=== PATIENT | male | born 1960 | race Caucasian/White ===

== ENCOUNTER 2024-03-14 08:14 | Day surgery (SDC) | payer BC, SELFPAY ==
[2024-02-25 13:00] VITALS: BMI 35.3
--- NOTE | 2024-02-25 13:14 | HPS.HSE ---
Family Physician
-
Family Physician: Kaila Boston
Chief Complaint
-
Paroxysmal atrial fibrillation.
History of Present Illness
The patient is a 64-year-old male presenting today for paroxysmal atrial fibrillation. The patient reports shortness of breath and decreased exercise tolerance associated with his arrhythmia. He previously underwent a YENNI-guided
cardioversion in July 2023 secondary to this diagnosis. Unfortunately, his atrial fibrillation quickly reoccurred soon after his procedure. He is on current pharmacological therapy with Diltiazem and Metoprolol Succinate. He reports he has been
compliant with Eliquis for oral anticoagulation due to a [id number] of 2. He notes that his current symptoms greatly interfere with his activities of daily living and overall impact his quality of life. He is interested in pursuing with pulmonary
vein isolation for further arrhythmia management. He denies any current complaints today such as chest pain and shortness of breath at rest, nausea, vomiting, diarrhea, lightheadedness, dizziness, cough, sore throat, or fever.
Medical History
Past Medical History
Past Medical History: Reports Other
Additional Past Medical History:
1. Paroxysmal atrial fibrillation, status post YENNI-guided cardioversion 07/2023; pharmacological therapy with Metoprolol Succinate and Diltiazem, oral anticoagulation with Eliquis.
2. Hypertension.
3. Hyperlipidemia.
4. Right bundle branch block.
5. 4.6 second conversion pauses noted on last event monitor, asymptomatic.
6. Asthma, mild and intermittent.
7. Obstructive sleep apnea, compliant with CPAP.
8. Right lower lobe pulmonary nodule on pre-operative chest CT.
9. Prediabetes.
10. History of hyponatremia, medication induced.
11. Obesity, BMI 35.3.
12. Remote history of tobacco abuse.
Past Surgical History: Reports Other
Additional Past Surgical History:
1. YENNI-guided cardioversion.
2. Cardiac catheterization.
3. Hydrocelectomy.
4. [place] teeth extraction.
5. Colonoscopy.
Social History
Tobacco: Former Smoker (He is a former 1/2 pack per day cigarette smoker who quit tobacco altogether approximately 30 years ago. )
Alcohol: Occasional (on weekends )
Personal:
Living: Other (He lives in a 2 story home with his . )
Family History
Family History: Not pertinent
Allergies / Home Medications
Allergy/Medication List:
Home medications:
1. Albuterol sulfate 2 puffs inhaled every 6 hours as needed.
2. Apixaban 5 mg p.o. twice a day.
3. Clonidine HCl 0.3 mg p.o. twice a day.
4. Diltiazem 240 mg p.o. twice a day.
5. Advair Diskus 1 inhalation twice a day.
6. Osteo Bi-Flex 2 tablets p.o. daily.
7. Hydralazine 25 mg p.o. three times a day.
8. Losartan 100 mg p.o. daily.
9. Metoprolol Succinate 100 mg p.o. at bedtime.
10. Multivitamin 1 tablet p.o. daily.
11. Brashear-3 2,000 mg p.o. daily.
12. CholestOff Complete 1 capsule p.o. daily.
13. Pravastatin 40 mg p.o. daily.
14. Saw palmetto 2 tablets p.o. daily.
Allergies: Peanuts. No known drug allergies.
Review of Systems
-
A 12 point ROS was completed and negative except as noted: Yes
Physical Exam
Vital Signs
Blood pressure 138/92. Heart rate 93. Respirations 18. Pulse ox 97% on room air.
Height 6 feet, 3 inches. Weight 128.2 kg. BMI 35.3.
Physical Exam
General: Well Developed, Well Nourished and No Apparent Distress
HEENT: NormoCephalic, Moist mucous membranes, Atraumatic and PERRLA
Respiratory: Clear
Cardiac: Irregular Rhythm
GI: Soft, Non Tender, Non Distended and Other (Obese. )
Musculoskeletal: No Edema and Normal Gait & Station
Skin: Warm and Dry
Neuro: AO x 3 and Nonfocal/grossly intact
Laboratory Results
-
DIAGNOSTIC STUDIES as of 02/25/2024: White blood cell count 10.4. Hemoglobin 14.3. Platelet count 225,000. PT 15.3. INR 1.15. Sodium 137. Potassium 4.3. BUN 18. Creatinine 1.2. Glucose 115. Calcium 9.6. Magnesium 2.0. AST 35. ALT 46. Albumin 4.5.
Type and screen O positive.
EKG 02/25/2024: Atrial fibrillation. Right bundle branch block.
Chest CT 02/25/2024: Short segment common vestibule for the left superior and inferior pulmonary veins, fairly commonly seen and considered normal variant. No evidence for left atrial thrombus. 2.2 cm right lower lobe groundglass nodule. Recommend
follow-up noncontrast CT chest in 6-12 months.
Impression/Plan
-
IMPRESSION/PLAN:
1. Paroxysmal atrial fibrillation: The patient is in need of pulmonary vein isolation with Dr. Arias Mercado on 03/14/2024. The benefits and risks of the procedure have been explained to the patient. The patient understands these risks and wishes to
proceed. He will not be required to undergo a pre-preprocedural transesophageal echocardiogram as he does report compliance with his home oral anticoagulation. He is aware to continue his Eliquis uninterrupted prior to his procedure. He will take no
medications the morning of his ablation.
2. Right lower lobe pulmonary nodule on chest CT: The patient was made aware of his chest CT results through phone call 02/26/2024. Results will be forwarded to his primary care physician, Dr. Kaila Boston, for further follow-up and management. It
is recommended he get a noncontrast chest CT in 6-12 months.
[2024-02-25 13:38] LABS: % Basophils 0.6 % (0-2); % Eosinophils 2.3 % (0-6); % Immature Granulocytes 0.8 % (0-0.5); % Lymphocytes 23.7 % (20.5-51.1); % Monocytes 6.7 % (1.7-9.3); % Neutrophils 65.9 % (42.2-75.2); Absolute Basophils 0.1 10^3/uL (0-0.2); Absolute Eosinophils 0.2 10^3/uL (0-0.7); Absolute Immature Granulocytes 0.1 10^3/uL (0-0.05); Absolute Lymphocytes 2.5 10^3/uL (1.2-3.4); Absolute Monocytes 0.7 10^3/uL (0.1-0.6); Absolute Neutrophils 6.9 10^3/uL (1.4-6.5); Hematocrit 42.6 % (39.0-52.0); Hemoglobin 14.3 g/dL (13.0-18.0); Mean Corp Hgb Conc. 33.6 g/dL (33.0-37.0); Mean Corpuscular Hgb 31.2 pg (27.0-31.0); Mean Corpuscular Volume 92.8 fL (80.0-94.0); Mean Platelet Volume 9.8 fL (7.4-10.4); Nucleated Red Blood Cells % 0 % (-); Platelet Count 225 10^3/uL (130-400); Red Blood Cell Count 4.59 10^6/uL (4.70-6.10); Red Cell Dist. Width 12.2 % (11.5-14.5); White Blood Cell Count 10.4 10^3/uL (4.8-10.8)
[2024-02-25 13:48] LABS: INR 1.15; PT 15.3 Sec (11.4-14.6)
[2024-02-25 13:56] LABS: ALT (SGPT) 46 U/L (0-50); AST (SGOT) 35 U/L (17-59); Albumin 4.5 g/dl (3.5-5.0); Alkaline Phosphatase 74 U/L (38-126); Blood Urea Nitrogen 18 mg/dl (9-20); Calcium 9.6 mg/dl (8.4-10.2); Carbon Dioxide 29 mmol/L (22-30); Chloride 98 mmol/L (98-107); Estimated Creatinine Clearance 87 ml/min; Glucose 115 mg/dl (70-99); Potassium 4.3 mmol/L (3.5-5.1); Sodium 137 mmol/L (135-145); Total Bilirubin 0.6 mg/dl (0.2-1.3); Total Protein 7.5 g/dl (6.3-8.2); eGFR > 60.00
--- NOTE | 2024-03-10 09:51 | OID.L.PAT ---
Pulmonary Nodule Pat Letter
- -
03/10/24
MINA PHAN
[address] [facility]
[place], [place]
Dear MINA,
A pulmonary nodule was seen on an imaging study done by [facility]. This was reviewed by the [facility] Pulmonary Nodule Advisory Board and the following recommendation was made:
Recommendation: Follow up with a Business Analyst Consultant
If you have any questions, please do not hesitate to contact your primary care physician. If you are in need of a Physician, you can go to [email or web address] and click on 'Find a Provider'. Type 'Family Medicine' in the search.
Oncology Nurse Navigator
[facility]
[phone]
--- NOTE | 2024-03-10 09:51 | OID.L.REC ---
Pulmonary Nodule Follow Up
- Recommendation
03/10/24
Pulmonary Nodule Review Recommendations
Your patient, MINA PHAN, had a pulmonary nodule seen on an imaging study done on 02/25/24 in the [facility] Radiology Department.
This was reviewed by the [facility] Pulmonary Nodule Advisory Board and the following recommendation was made:
Recommendation: Follow up with a Seismic Observer
If you have any questions please do not hesitate to contact us.
Sincerely,
Oncology Nurse Navigator
[facility]
[phone]
[2024-03-14] VITALS (14 sets, daily range): BP systolic 112–126; BP diastolic 70–78
[2024-03-14] MEDS: TYLENOL 1000 MG PO (09:37)
--- NOTE | 2024-03-14 10:55 | ITS.CL.ABL ---
[facility] In - Ablation
Ablation
Procedure Report:
Primary Firm Administrator: Marques Rodgers MD
Procedure Date: 03/14/2024
Patient History:
Patient is a pleasant 64-year-old male with a past medical history significant for hypertension, sleep apnea, dyslipidemia, right bundle branch block, asthma, symptomatic paroxysmal now persistent atrial fibrillation with symptomatic conversion
pauses.
See H&P for complete details.
Indication:
Symptomatic persistent atrial fibrillation
Early recurrence following cardioversion
Arrhythmia Specific History:
Prior Medical Therapies for Rate and Rhythm Control:
X Beta-pro
X Calcium channel-pro
[ ] Amiodarone
[ ] Dronederone
[ ] Sotalol
[ ] Flecainide
[ ] Dofetilide
X Options limited by bradycardia
[ ] Options limited by comorbid renal disease
Prior Procedural Therapies for AF/AFL:
X Cardioversion
[ ] Pulmonary Vein Isolation
[ ] Posterior Wall Isolation
[ ] Additional lines (Specify)
[ ] Surgical Arana-MAZE or PVI (Specify)
Procedure Performed:
X AF ablation procedure (95699) -- includes LA/CS pacing, trans-septal, 3D mapping, + ICE
[ ] +IV drug (77496)
[ ] +Other Arrhythmia (57863)
X +Other AF Line/ablation (30531) - posterior wall isolation (roof, floor, wall)
Risks and expected recovery has been explained in detail. Alternative options have been explored, and in a shared-decision making fashion we have decided that this was the most appropriate procedure.
Method
NPO status confirmed. Grounding pad applied. Defibrillator pads applied. Continuous surface ECG, pulse oximetry, and blood pressure were monitored. Procedure was performed under general anesthesia, with anesthesia services.
Both groins were clipped, prepped with Chloraprep, and draped in sterile fashion. Time out was called. Local anesthesia administered with bupivacaine. The right femoral vein was accessed for catheter placement, using ultrasound guidance (images
saved to record), micro-puncture needle/wire, and modified seldinger technique. 3 sheaths were placed. The following catheters were used:
[ ] Tacticath SE (D/F Curve) ablation catheter
X Viewflex 9Fr ICE catheter
X Inquiry decapolar 6Fr diagnostic catheter
[ ] CRD Hex 6Fr
[ ] Arctic Front Advance Cryoballoon ([ ]28mm[ ]23mm)
[ ] Achieve Advance mapping catheter ([ ]15mm[ ]20mm)
X FlexCath Contour 10 Fr with PulseSelect PFA Catheter
X Advisor HD Grid Mapping Catheter, SE
[ ] AcusArynga AcuNav 8 Fr ICE catheter
[ ]Other: [ ]
Intracardiac ultrasound (ICE) was carefully advanced into the right atrium to guide sheath placement over a J-wire, catheter placement, guide trans-septal puncture, identify potential complications, identify anatomic structures and ensure proper
contact between ablation catheter and tissue. A trace basal circumferential pericardial effusion was noted at baseline which remained unchanged throughout the case and at case completion.
Heparin was given prior to trans-septal puncture. Heparin was given to achieve and maintain a target ACT of 300-400 seconds throughout the procedure.
Trans-septal access was performed under ICE guidance. The trans-septal puncture was performed with a SafeSept wire through a Brockenbrough needle assembly through the steerable sheath. The wire was visualized as it entered the LSPV and system
advanced under ICE guidance and fluoroscopy into the LA. The Brockenbrough needle assembly, SafeSept wire and sheath dilator were removed under negative pressure. LA pressure was measured and recorded.
ICE and 3D mapping was performed to identify relevant cardiac structures. A careful 3D map was created to assess for regions of low-voltage and abnormal electrogram signals using HD grid mapping catheter and PulseSelect catheter. Additional mapping
was performed as outlined below.
Prior to ablation, glycopyrrolate was provided. PulseSelect catheter was advanced over J-wire to the ostium of each vein. Pulmonary vein isolation was performed with ostial and antral lesions in a circumferential manner. Contact was visualized via
EAM, ICE, fluoroscopy, and EGM signals. Posterior wall isolation was performed by anchoring the J-wire within the pulmonary vein and placing the PulseSelect catheter in contact with the posterior wall as visualized by aforementioned methods.
Following completion of ablation lesions, sinus rhythm was restored with a 360J synchronized DCCV (failed 200J) and a post-ablation voltage/activation map was performed in atrial pacing. Reconnection was noted on the posterior wall and in the right
superior pulmonary vein during electroanatomic mapping. Repeat ablation was performed PCI right superior pulmonary vein and along the posterior wall/roof. Electroanatomic mapping was once more performed and entrance and exit block were confirmed
for each vein and the posterior wall.
Catheter and sheath were removed from the left atrium and post-ablation intracardiac echo evaluation was consistent with pre-ablation with no changes and no change to trace pericardial effusion and there is no left atrial thrombus or left ventricle
thrombus seen. Electrophysiology study was performed. During atrial extrastimuli, PAF was induced. 360 J synchronized cardioversion was performed with quaker of sinus rhythm. Hemostasis was obtained with figure of 8 stitch for each groin and
with manual pressure. Protamine was used for reversal.
Estimated Blood Loss
5 mL
Complications
None
Fluoroscopy: 6.8 minutes; 76.82 mGy; DAP 8.13
Baseline Intervals:
Rhythm: AF
QRS: 177 ms
Post-Procedure Intervals:
MT: 266 ms
QRS: 176 ms
QT: 489 ms
QTc: 543 ms
AVWB: 430 ms
AVNERP: 600/310 ms
Recommendations
- Bedrest with straight-leg precautions as ordered
- Anticipate same day discharge if patient meeting clinical metrics
- Resume home medications as indicated; decrease diltiazem to 240 mg daily
- Ok to resume anticoagulation tonight if patient and groin sites stable
- PPI daily for 30 days
- Plan for follow-up in office as scheduled
Arias Mercado, DO
Clinical Cardiac Application Support Consultant
cc: Marques Rodgers MD; Kaila Boston, DO
[2024-03-14 11:28] LABS: ACT-LR - POC 276 Seconds (116-155)
[2024-03-14 11:45] LABS: ACT-LR - POC 282 Seconds (116-155)
[2024-03-14 12:16] LABS: ACT-LR - POC 318 Seconds (116-155)
[2024-03-14 12:43] LABS: ACT-LR - POC 369 Seconds (116-155)
[2024-03-14 13:04] LABS: ACT-LR - POC 182 Seconds (116-155)
[2024-03-14 13:30] LABS: ACT-LR - POC > 397 Seconds (116-155)
--- NOTE | 2024-03-14 13:37 | PTCARENOTE ---
Dr Jaimes at pt bedside speaking to pt about procedure results.
--- NOTE | 2024-03-14 13:40 | PTCARENOTE ---
Pt noted to have a round dime sized red lump on left lateral abdomen. Pt also noted to have pea sized red lump on left anterior chest x2 and right anterior leg. Pt denies itching or pain at any site. No skin breakdown noted. Dr Jaimes and Clementina Lance
DIRECTOR PROCESS both made aware. No treatment ordered at this time.
--- NOTE | 2024-03-14 15:15 | PTCARENOTE ---
Dr Jaimes at pt bedside speaking to pt and pt's family.
--- NOTE | 2024-03-14 17:07 | W.PN.UPDATE ---
Update Note
Progress Note Update
64 yo WM s/p PVI (same day). He denies cp, sob, dipak diet, EKG SR 1deg AVB RBBB, R groin c/d/i no HT. He will resume Eliquis tonight. We will decrease his diltiazem to daily, and continue metoprolol. Activity restrictions reviewed. He will f/u
Vishal in 3 mo. He is for d/c home after 6pm if groin stable and voiding.
== END 2024-03-14 17:55 | disposition home or self-care (01) ==
LOC: CATH 08:14
PROVIDERS: ATTENDING PHYSICIAN Internal Medicine Cardiovascular Disease; FAMILY PHYSICIAN Family Medicine
DX: I48.19 Other persistent atrial fibrillation (principal); R06.02 Shortness of breath; Z79.899 Other long term (current) drug therapy; I10 Essential (primary) hypertension; E78.5 Hyperlipidemia, unspecified; I45.10 Unspecified right bundle-branch block; J45.909 Unspecified asthma, uncomplicated; G47.33 Obstructive sleep apnea (adult) (pediatric); R91.1 Solitary pulmonary nodule; R73.03 Prediabetes; E87.1 Hypo-osmolality and hyponatremia; E66.9 Obesity, unspecified; Z68.35 Body mass index [BMI] 35.0-35.9, adult; Z87.891 Personal history of nicotine dependence; Z79.51 Long term (current) use of inhaled steroids; Z79.01 Long term (current) use of anticoagulants
CPT/HCPCS: C1733; C1732; C1894 ×2; C1730; C1769; 36415; 75572; 80053; 83735; 85025; 85347; 85610; 86850; 86900; 86901; 93005; 93656; 93657; C1766; Q9967

== ENCOUNTER 2024-10-30 07:07 | Day surgery (SDC) | payer BC, MEDICARE, SELFPAY ==
--- NOTE | 2024-10-13 12:11 | HPS.HSE ---
Family Physician
-
Family Physician: NOT KNOW UNKNOWN - PT DOES
Chief Complaint
-
Persistent atrial fibrillation.
History of Present Illness
The patient is a 64-year-old male presenting today for persistent atrial fibrillation. The patient reports shortness of breath and decreased exercise tolerance associated with his arrhythmia. He previously underwent a YENNI-guided
cardioversion in July 2023 and pulmonary vein isolation in February 2024 secondary to this diagnosis. Unfortunately, his atrial fibrillation was noted to return during his routine cardiac evaluation with his primary upsetter setter up in June 2024. He is on
current pharmacological therapy with Diltiazem and Metoprolol Succinate. He reports that he has been compliant with Eliquis for oral anticoagulation due to a [id number] of 2. He notes that his current symptoms associated with his arrhythmia
overall impact his quality of life. He is interested in pursuing with pulmonary vein isolation again for more definitive arrhythmia management. Prior to undergoing his ablation, however, he will proceed first with a transesophageal echocardiogram to
rule out a left atrial appendage thrombus. He denies any current complaints today such as chest pain and shortness of breath at rest, nausea, vomiting, diarrhea, lightheadedness, dizziness, cough, sore throat, or fever.
Medical History
Past Medical History
Past Medical History: Reports Other
Additional Past Medical History:
1. Persistent atrial fibrillation, status post YENNI-guided cardioversion, 07/2023, and pulmonary vein isolation 02/2024; pharmacological therapy with Metoprolol Succinate and Diltiazem, oral anticoagulation with Eliquis.
2. Hypertension.
3. Hyperlipidemia.
4. Right bundle branch block.
5. 4.6 second conversion pauses on previous event monitor.
6. Mild-moderate valvular disease.
7. Asthma, mild and intermittent.
8. Obstructive sleep apnea, compliant with CPAP.
9. Right lower lobe pulmonary nodule.
10. Prediabetes.
11. History of hyponatremia and hypokalemia, medication induced.
12. Obesity, BMI 35.6.
13. Remote history of tobacco abuse.
Past Surgical History: Reports Other
Additional Past Surgical History:
1. Pulmonary vein isolation.
2. YENNI-guided cardioversion.
3. Cardiac catheterization.
4. Hydrocelectomy.
5. [place] teeth extraction.
6. Colonoscopy.
Social History
Tobacco: Former Smoker (He is a former 1/2 pack per day cigarette smoker who quit tobacco altogether approximately 30 years ago. )
Alcohol: Occasional (on weekends)
Personal:
Living: Other ((He lives in a 2 story home with his .)
Family History
Family History: Not pertinent
Allergies / Home Medications
Allergy/Medication List:
Home medications:
1. Albuterol sulfate 2 puffs inhaled every 6 hours as needed.
2. Apixaban 5 mg p.o. twice a day.
3. Clonidine HCl 0.3 mg p.o. twice a day.
4. Diltiazem 240 mg p.o. daily.
5. Advair Diskus 1 inhalation twice a day.
6. Osteo Bi-Flex 2 tablets p.o. daily.
7. Hydralazine 25 mg p.o. three times a day.
8. Losartan 100 mg p.o. daily.
9. Metoprolol Succinate 100 mg p.o. at bedtime.
10. Multivitamin 1 tablet p.o. daily.
11. Bacliff-3 2,400 mg p.o. daily.
12. CholestOff Complete 2 capsule p.o. daily.
13. Pravastatin 40 mg p.o. daily.
14. Saw palmetto 2 tablets p.o. daily.
Allergies: Amlodipine. Chlorthalidone. Lisinopril. Peanuts.
Review of Systems
-
A 12 point ROS was completed and negative except as noted: Yes
Physical Exam
Vital Signs
Blood pressure 139/91. Heart rate 70. Respirations 18. Pulse ox 97% on room air.
Height 6 feet, 2.5 inches. Weight 127.6 kg. BMI 35.6.
Physical Exam
General: Well Developed, Well Nourished and No Apparent Distress
HEENT: NormoCephalic, Moist mucous membranes, Atraumatic and PERRLA
Respiratory: Clear
Cardiac: Irregular Rhythm
GI: Soft, Non Tender, Non Distended and Other (Obese. )
Musculoskeletal: No Edema and Normal Gait & Station
Skin: Warm and Dry
Neuro: AO x 3 and Nonfocal/grossly intact
Laboratory Results
-
DIAGNOSTIC STUDIES as of 10/13/2024: White blood cell count 9.2. Hemoglobin 15.2. Platelet count 226,000. PT 14.8. INR 1.13. Sodium 137. Potassium 4.2. BUN 18. Creatinine 0.9. Glucose 116. Calcium 9.8. Magnesium 1.8. AST 38. ALT 45. Albumin 4.7.
Type and screen O positive.
EKG 10/13/2024: Atrial fibrillation. Right bundle branch block.
Echocardiogram 05/17/2023: The ejection fraction is 60-65%. Mild concentric left ventricular hypertrophy. Left atrium is markedly dilated. Right ventricle is mildly enlarged. Right atrium is severely enlarged. Mild-moderate aortic stenosis with some
restriction of motion. Anterior leaflet is mildly thickened and sclerotic. Moderate posterior mitral annular calcification. Physiologic mitral regurgitation present. Trivial tricuspid regurgitation.
Impression/Plan
-
IMPRESSION/PLAN:
1. Persistent atrial fibrillation: The patient is in need of pulmonary vein isolation for further arrhythmia management; however, prior to undergoing this procedure, he will first undergo a tranesophageal echocardiogram to definitively rule out a
left atrial appendage thrombus. This has been scheduled for 10/30/[address] Shadia Peng. The benefits and risks of the procedure have been explained to the patient. The patient understands these risks and wishes to proceed. He is aware to
continue his Eliquis uninterrupted prior to his procedure.
[2024-10-30 07:52] VITALS: BMI 35.5
== END 2024-10-30 09:10 | disposition home or self-care (01) ==
LOC: CATH 07:07
PROVIDERS: ATTENDING PHYSICIAN Internal Medicine Cardiovascular Disease; FAMILY PHYSICIAN Family Medicine; OTHER PHYSICIAN Internal Medicine Cardiovascular Disease
DX: I08.3 Combined rheumatic disorders of mitral, aortic and tricuspid valves (principal); I77.810 Thoracic aortic ectasia; I70.0 Atherosclerosis of aorta; I08.8 Other rheumatic multiple valve diseases; I48.19 Other persistent atrial fibrillation; I10 Essential (primary) hypertension; E78.5 Hyperlipidemia, unspecified; E66.9 Obesity, unspecified; G47.33 Obstructive sleep apnea (adult) (pediatric); J45.909 Unspecified asthma, uncomplicated; Z68.35 Body mass index [BMI] 35.0-35.9, adult; Z87.891 Personal history of nicotine dependence; R73.03 Prediabetes; Z79.899 Other long term (current) drug therapy; Z79.51 Long term (current) use of inhaled steroids; Z79.01 Long term (current) use of anticoagulants; Z91.010 Allergy to peanuts; Z88.8 Allergy status to other drugs, medicaments and biological substances
CPT/HCPCS: 93312; 93320; 93325

== ENCOUNTER 2024-10-31 05:54 | Day surgery (SDC) | payer BC, MEDICARE, SELFPAY ==
[2024-10-13 10:44] VITALS: BMI 35.6
--- NOTE | 2024-10-13 10:54 | HPS.HSE ---
Family Physician
-
Family Physician: Kaila Boston
Chief Complaint
-
Persistent atrial fibrillation.
History of Present Illness
The patient is a 64-year-old male presenting today for persistent atrial fibrillation. The patient reports shortness of breath and decreased exercise tolerance associated with his arrhythmia. He previously underwent a YENNI-guided
cardioversion in July 2023 and pulmonary vein isolation in February 2024 secondary to this diagnosis. Unfortunately, his atrial fibrillation was noted to return during his routine cardiac evaluation with his primary broach trouble shooter in June 2024. He is on
current pharmacological therapy with Diltiazem and Metoprolol Succinate. He reports that he has been compliant with Eliquis for oral anticoagulation due to a [id number] of 2. He notes that his current symptoms associated with his arrhythmia
overall impact his quality of life. He is interested in pursuing with pulmonary vein isolation again for more definitive arrhythmia management. He denies any current complaints today such as chest pain and shortness of breath at rest, nausea,
vomiting, diarrhea, lightheadedness, dizziness, cough, sore throat, or fever.
Medical History
Past Medical History
Past Medical History: Reports Other
Additional Past Medical History:
1. Persistent atrial fibrillation, status post YENNI-guided cardioversion, 07/2023, and pulmonary vein isolation 02/2024; pharmacological therapy with Metoprolol Succinate and Diltiazem, oral anticoagulation with Eliquis.
2. Hypertension.
3. Hyperlipidemia.
4. Right bundle branch block.
5. 4.6 second conversion pauses on previous event monitor.
6. Mild-moderate valvular disease.
7. Asthma, mild and intermittent.
8. Obstructive sleep apnea, compliant with CPAP.
9. Right lower lobe pulmonary nodule.
10. Prediabetes.
11. History of hyponatremia and hypokalemia, medication induced.
12. Obesity, BMI 35.6.
13. Remote history of tobacco abuse.
Past Surgical History: Reports Other
Additional Past Surgical History:
1. Pulmonary vein isolation.
2. YENNI-guided cardioversion.
3. Cardiac catheterization.
4. Hydrocelectomy.
5. [place] teeth extraction.
6. Colonoscopy.
Social History
Tobacco: Former Smoker (He is a former 1/2 pack per day cigarette smoker who quit tobacco altogether approximately 30 years ago. )
Alcohol: Occasional (on weekends.)
Personal:
Living: Other (He lives in a 2 story home with his .)
Family History
Family History: Not pertinent
Allergies / Home Medications
Allergy/Medication List:
Home medications:
1. Albuterol sulfate 2 puffs inhaled every 6 hours as needed.
2. Apixaban 5 mg p.o. twice a day.
3. Clonidine HCl 0.3 mg p.o. twice a day.
4. Diltiazem 240 mg p.o. daily.
5. Advair Diskus 1 inhalation twice a day.
6. Osteo Bi-Flex 2 tablets p.o. daily.
7. Hydralazine 25 mg p.o. three times a day.
8. Losartan 100 mg p.o. daily.
9. Metoprolol Succinate 100 mg p.o. at bedtime.
10. Multivitamin 1 tablet p.o. daily.
11. Hoxie-3 2,400 mg p.o. daily.
12. CholestOff Complete 2 capsule p.o. daily.
13. Pravastatin 40 mg p.o. daily.
14. Saw palmetto 2 tablets p.o. daily.
Allergies: Amlodipine. Chlorthalidone. Lisinopril. Peanuts.
Review of Systems
-
A 12 point ROS was completed and negative except as noted: Yes
Physical Exam
Vital Signs
Blood pressure 139/91. Heart rate 70. Respirations 18. Pulse ox 97% on room air.
Height 6 feet, 2.5 inches. Weight 127.6 kg. BMI 35.6.
Physical Exam
General: Well Developed, Well Nourished and No Apparent Distress
HEENT: NormoCephalic, Moist mucous membranes, Atraumatic and PERRLA
Respiratory: Clear
Cardiac: Irregular Rhythm
GI: Soft, Non Tender, Non Distended and Other (Obese. )
Musculoskeletal: No Edema and Normal Gait & Station
Skin: Warm and Dry
Neuro: AO x 3 and Nonfocal/grossly intact
Laboratory Results
-
DIAGNOSTIC STUDIES as of 10/13/2024: White blood cell count 9.2. Hemoglobin 15.2. Platelet count 226,000. PT 14.8. INR 1.13. Sodium 137. Potassium 4.2. BUN 18. Creatinine 0.9. Glucose 116. Calcium 9.8. Magnesium 1.8. AST 38. ALT 45. Albumin 4.7.
Type and screen O positive.
EKG 10/13/2024: Atrial fibrillation. Right bundle branch block.
Echocardiogram 05/17/2023: The ejection fraction is 60-65%. Mild concentric left ventricular hypertrophy. Left atrium is markedly dilated. Right ventricle is mildly enlarged. Right atrium is severely enlarged. Mild-moderate aortic stenosis with some
restriction of motion. Anterior leaflet is mildly thickened and sclerotic. Moderate posterior mitral annular calcification. Physiologic mitral regurgitation present. Trivial tricuspid regurgitation.
Impression/Plan
-
IMPRESSION/PLAN:
1. Persistent atrial fibrillation: The patient is in need of pulmonary vein isolation with Dr. Arias Mercado on 10/31/2024. The benefits and risks of the procedure have been explained to the patient. The patient understands these risks and wishes to
proceed. Prior to undergoing his ablation, he will proceed first with a transesophageal echocardiogram on 10/30/2024 to definitively rule out a left atrial appendage thrombus. He is aware to continue his Eliquis uninterrupted prior to his procedure.
He will take no medications the morning of his ablation.
[2024-10-13 11:22] LABS: Hematocrit 44.5 % (39.0-52.0); Hemoglobin 15.2 g/dL (13.0-18.0); Mean Corp Hgb Conc. 34.2 g/dL (33.0-37.0); Mean Corpuscular Volume 91.8 fL (80.0-94.0); Nucleated Red Blood Cells % 0 % (-); Platelet Count 226 10^3/uL (130-400); Red Cell Dist. Width 12.3 % (11.5-14.5)
[2024-10-13 11:33] LABS: INR 1.13; PT 14.8 Sec (11.4-14.6)
[2024-10-13 11:53] LABS: ALT (SGPT) 45 U/L (0-50); AST (SGOT) 38 U/L (17-59); Albumin 4.7 g/dl (3.5-5.0); Alkaline Phosphatase 70 U/L (38-126); Blood Urea Nitrogen 18 mg/dl (9-20); Calcium 9.8 mg/dl (8.4-10.2); Carbon Dioxide 26 mmol/L (22-30); Chloride 102 mmol/L (98-107); Estimated Creatinine Clearance 115 ml/min; Glucose 116 mg/dl (70-99); Magnesium 1.8 mg/dl (1.6-2.3); Potassium 4.2 mmol/L (3.5-5.1); Sodium 137 mmol/L (135-145); Total Protein 7.8 g/dl (6.3-8.2); eGFR > 60.00
[2024-10-31] VITALS (13 sets, daily range): BP systolic 125–167; BP diastolic 78–110; BMI 35.6
[2024-10-31] MEDS: NSS 500 IV (06:49)
[2024-10-31] MEDS: TYLENOL 1000 MG PO (07:15)
--- NOTE | 2024-10-31 07:28 | ITS.CL.ABL ---
Shoe Maker - Ablation
Ablation
Procedure Report:
Primary Tax Analyst: Dr Marques Rodgers
Procedure Date: 10/31/2024
Patient History:
Patient's pleasant 64-year-old male with a past medical history significant for hypertension, sleep apnea, obesity, hyperlipidemia, and symptomatic persistent atrial fibrillation.
See H&P for complete details.
Indication:
Symptomatic persistent atrial fibrillation
Recurrence of atrial fibrillation following prior cardiac ablation
Arrhythmia Specific History:
Prior Medical Therapies for Rate and Rhythm Control:
X Beta-pro
X Calcium channel-pro
[ ] Amiodarone
[ ] Dronederone
[ ] Sotalol
[ ] Flecainide
[ ] Dofetilide
[ ] Options limited by bradycardia
[ ] Options limited by comorbid renal disease
Prior Procedural Therapies for AF/AFL:
X Cardioversion
X Pulmonary Vein Isolation 02/2024
X Posterior Wall Isolation 02/2024
X Additional lines (Specify) -floor line, roofline 02/2024
[ ] Surgical Arana-MAZE or PVI (Specify)
Procedure Performed:
X AF ablation procedure (04473) -- includes LA/CS pacing, trans-septal, 3D mapping, + ICE
[ ] +IV drug (39876)
X +Other Arrhythmia (63449) - Typical atrial flutter ablation
X +Other AF Line/ablation (62230) - floor line, roof line, posterior wall isolation
Risks and expected recovery has been explained in detail. Alternative options have been explored, and in a shared-decision making fashion we have decided that this was the most appropriate procedure.
Method
NPO status confirmed. Grounding pad applied. Defibrillator pads applied. Continuous surface ECG, pulse oximetry, and blood pressure were monitored. Procedure was performed under general anesthesia, with anesthesia services.
Both groins were clipped, prepped with Chloraprep, and draped in sterile fashion. Time out was called. Local anesthesia administered with bupivacaine. The right femoral vein was accessed for catheter placement, using ultrasound guidance (images
saved to record), micro-puncture needle/wire, and modified seldinger technique. 3 sheaths were placed. The following catheters were used:
[ ] Tacticath SE (D/F Curve) ablation catheter
X Viewflex 9Fr ICE catheter
X Inquiry decapolar 6Fr diagnostic catheter
[ ] CRD Hex 6Fr
X Agilis 11.5 Fr Steerable Sheath
X Sphere-9 Ablation catheter
[ ] Advisor HD Grid Mapping Catheter, SE
[ ] Acuson AcuNav 8 Fr ICE catheter
[ ] Other: [ ]
A multipolar catheter were advanced to the coronary sinus. Intracardiac ultrasound (ICE) was carefully advanced into the right atrium to guide sheath placement over a J-wire, catheter placement, guide trans-septal puncture, identify potential
complications, identify anatomic structures and ensure proper contact between ablation catheter and tissue. A trace basal pericardial effusion was noted at the initiation of procedure. This remained unchanged throughout procedure and the case
completion.
Heparin was given to achieve and maintain a target ACT of 300-400 seconds throughout the procedure.
Trans-septal access was performed under ICE guidance. The trans-septal puncture was performed with a SafeSept wire through a Brockenbrough needle assembly through the steerable sheath. The wire was visualized as it entered the LSPV and system
advanced under ICE guidance and fluoroscopy into the LA. The Brockenbrough needle assembly, SafeSept wire and sheath dilator were removed under negative pressure. LA pressure was measured and recorded.
ICE and 3D mapping was performed to identify relevant cardiac structures. A careful 3D map was created to assess for regions of low-voltage and abnormal electrogram signals using Sphere-9 catheter. Additional mapping was performed as outlined below.
Prior to ablation, glycopyrrolate was provided. Sphere 9 catheter was advanced into the left atrium. Electroanatomic mapping was performed using the Sphere 9 catheter. Reconnection was noted at the right superior pulmonary vein. While the left
superior, left inferior, and right inferior pulmonary veins demonstrated exit block, complex fractionated signal ingrowth was noted at the ostia of the veins. Therefore, pulmonary vein isolation was performed using pulsed field ablation in a
circumferential manner. Contact was visualized via EAM, ICE, fluoroscopy, and EGM signals.
After accomplishing pulmonary venous isolation, mapping identified additional areas likely to be extra PV contributors to atrial fibrillation. The floor line, roofline, and posterior wall had previously been isolated however patchy electrograms
were noted which could play a role in patient's atrial fibrillation initiation and sustained arrhythmias. These areas demonstrated patchy low voltage as well as complex fractionated electrograms. These areas can be sites for the formation of rotors
which can drive and maintain atrial fibrillation. These areas are known to be significant contributors to initiation and perpetuation of atrial fibrillation.
Additional energy applications/additional ablation sets targeted extra PV contributors to atrial fibrillation.
Targets for additional PFA ablation included: LA posterior wall targeted with pulsed electric field energy isolating the posterior wall of the left atrium. Posterior wall isolation was performed by aforementioned methods using Sphere-9 catheter.
After ablation of the posterior wall, targets remained including:
- Inferior LA floor
- Anterior LA roof
- The ridge of tissue between the left atrial appendage and the left sided pulmonary veins (Ligament of Arnaldo)
These areas were ablated using pulsed electric field energy eliminating the extra PV contributors to atrial fibrillation.
Following completion of ablation lesions, sinus rhythm was restored with a 360J synchronized DCCV (unsuccessful 200J synchronized DCCV) and a post-ablation voltage/activation map was performed in sinus rhythm. Entrance and exit block were confirmed
for each vein and the posterior wall.
Next, electrophysiology study was performed. Atrial flutter was induced with a concentric pattern on coronary sinus catheter. Pacing from proximal coronary sinus demonstrated circuit likely originating from the right atrium while pacing from the
distal coronary sinus demonstrated manifest entrainment with a late PPI minus TCL. The sphere�9 catheter was removed from the left atrium and LA pressures were recorded. Sheath was removed from the left atrium and the catheter was reintroduced
into the right atrium. Three-dimensional electroanatomic mapping was utilized with careful attention to anatomic landmarks, including the coronary sinus, IVC-RA and SVC-RA junction, tricuspid valve annulus, and region of the His bundle electrogram.
Tachycardia was characterized by activation patterns in the CS catheters. Entrainment maneuvers established cavotricuspid isthmus-dependence. Tachycardia at terminated with bump to CTI. Baseline bidirectional transisthmus time was recorded. An
ablation line was created from the tricuspid annulus to the IVC in the 6:00 position (ROLAND clock/caudal EAM projection). A combination of RF and PF was used with careful monitoring of impedance, AV conduction, power, and temperature. Ablation
continued until a line was complete from the tricuspid valve annulus to the IVC-RA junction during CS pacing. Clockwise and counterclockwise trans-isthmus times were determined, and RA activation patterns confirmed bidirectional block.
Following the waiting period, electrophysiology study was once more performed and patient was noninducible for arrhythmias. Intracardiac echo evaluation was consistent with pre-ablation with no changes and no changes to trace pericardial effusion
and there is no left atrial thrombus or left ventricle thrombus seen. Hemostasis was obtained with figure of 8 stitch for each groin and with manual pressure. Protamine was used for reversal.
Estimated Blood Loss
5 mL
Complications
None
Fluoroscopy: 4.6 minutes; 41.08 mGy; DAP 4.83
LA Pressure: Pre 9 mmHg, post 13 mmHg
Baseline Intervals:
Rhythm: AF
QRS: 153 ms
QT: 386 ms
Post-Procedure Intervals:
NJ: 212 ms
QRS: 187 ms
QT: 457 ms
QTc: 487 ms
AVWB: 380 ms
AERP: 600/210 ms
Recommendations
- Bedrest with straight-leg precautions as ordered
- Anticipate same day discharge if patient meeting clinical metrics
- Resume home medications as indicated
- Ok to resume anticoagulation tonight if patient and groin sites stable
- Plan for follow-up in office as scheduled
Arias Mercado DO, FAC, [facility]
Clinical Cardiac Welder Assembler
cc: Dr Marques Rodgers; Dr Kaila Boston
[2024-10-31 08:39] LABS: ACT-LR - POC 261 Seconds (116-155)
[2024-10-31 09:13] LABS: ACT-LR - POC 314 Seconds (116-155)
[2024-10-31 09:59] LABS: ACT-LR - POC 351 Seconds (116-155)
[2024-10-31 10:32] LABS: ACT-LR - POC 255 Seconds (116-155)
[2024-10-31] MEDS: COZAAR 100 MG PO (12:37)
[2024-10-31] MEDS: CATAPRES 0.3 MG PO (12:38)
[2024-10-31] MEDS: CARDIZEM CD 240 MG PO (12:38)
[2024-10-31 12:41] LABS: ACT-LR - POC > 397 Seconds (116-155)
[2024-10-31 12:41] LABS: ACT-LR - POC > 397 Seconds (116-155)
[2024-10-31 12:41] LABS: ACT-LR - POC > 397 Seconds (116-155)
--- NOTE | 2024-10-31 15:03 | W.PN.UPDATE ---
Update Note
Progress Note Update
64 yo WM s/p PVI and flutter ablation (same day). He denies cp, sob, dipak diet, EKG SR 1 deg AVB, R fem site c/d/i no HT. He will resume Eliquis tonight and continue diltiazem and metoprolol. Activity restrictions reviewed. He will f/u Dr. Rodgers in
3 mo. He is for d/c home after 330p if groin stable and voiding.
== END 2024-10-31 15:25 | disposition home or self-care (01) ==
LOC: CATH 05:54
PROVIDERS: ATTENDING PHYSICIAN Internal Medicine Cardiovascular Disease; FAMILY PHYSICIAN Family Medicine; OTHER PHYSICIAN Internal Medicine Cardiovascular Disease
DX: I48.19 Other persistent atrial fibrillation (principal); I48.3 Typical atrial flutter; E66.9 Obesity, unspecified; E78.5 Hyperlipidemia, unspecified; G47.33 Obstructive sleep apnea (adult) (pediatric); I10 Essential (primary) hypertension; I44.0 Atrioventricular block, first degree; I45.10 Unspecified right bundle-branch block; J45.909 Unspecified asthma, uncomplicated; Z87.891 Personal history of nicotine dependence; Z79.01 Long term (current) use of anticoagulants; Z79.51 Long term (current) use of inhaled steroids; Z79.899 Other long term (current) drug therapy; Z88.8 Allergy status to other drugs, medicaments and biological substances; Z91.010 Allergy to peanuts; Z68.35 Body mass index [BMI] 35.0-35.9, adult
CPT/HCPCS: C1733; C1894; C1766; 36415; 80053; 83735; 85025; 85347; 85610; 86850; 86900; 86901; 93005; 93655; 93656; 93657